=== PATIENT | male | born 1980 | race Caucasian/White ===

== ENCOUNTER 2024-05-15 17:37 | Emergency (ER) | payer OTHER, SELFPAY ==
--- NOTE | ~2024-05-15 | CT_ITS ---
EXAMINATION: CT ABDOMEN AND PELVIS WITHOUT CONTRAST CLINICAL INFORMATION: flank pain, blood in urine. COMPARISON: No pertinent prior studies are available for comparison. TECHNIQUE: Multidetector volumetric imaging was performed from the superior aspect of the liver through the pubic symphysis without contrast per renal stone protocol. Sagittal and coronal reformatted images were obtained on the technologist workstation. This CT examination was performed using dose optimization techniques as appropriate, variously including the following: *Automated exposure control *Adjustment of mA and/or kV according to patient size (this includes techniques or standardized protocols for targeted exams where dose is matched to indication/reason for exam; i.e. extremities or head) *Use of iterative reconstruction technique DLP: 603 mGy-cm. FINDINGS: LUNG BASES: The visualized lung bases are unremarkable. LIVER, GALLBLADDER, BILIARY TREE: The non-contrast liver is normal in size, shape, and attenuation. No focal hepatic lesion or biliary ductal dilatation is present. The gallbladder is contracted but otherwise unremarkable with no evidence of radiopaque gallstones, gallbladder wall thickening, or obvious pericholecystic inflammatory changes. PANCREAS: Unremarkable. SPLEEN: Unremarkable. ADRENAL GLANDS: Unremarkable. KIDNEYS AND URETERS: Mild right-sided hydronephrosis extending up to a 6 mm calculi at the right ureteropelvic junction. I do not appreciate any intrarenal calculi otherwise. Contralateral left kidney is unremarkable. BLADDER: Decompressed but otherwise unremarkable GASTROINTESTINAL TRACT: The small and large bowel are unremarkable. The appendix is unremarkable. ABDOMINAL WALL: No significant hernia is appreciated. LYMPHOVASCULAR STRUCTURES: No lymphadenopathy. The aorta is unremarkable.. PELVIC VISCERA: Unremarkable. OSSEUS STRUCTURES: Unremarkable. CT/CT abdomen pelvis wo IV con IMPRESSION: Mild right-sided hydronephrosis extending up to a 6 mm calculi at the right ureteropelvic junction.
[2024-05-15 17:40] VITALS: BP 123/71; PULSE 56; RESP 18; TEMP 36.4; O2SAT 99; BMI 30.2
--- NOTE | 2024-05-15 17:43 | ED_ITS ---
HPI - General Adult General Chief complaint: General Medical Stated complaint: from UC, needs ultrasound of kidneys Time Seen by Provider: 05/15/24 20:14 Source: patient Mode of arrival: ambulatory Limitations: no limitations History of Present Illness ED Provider: Thelma ALICEA HPI narrative: 43 yo male presenting with bilateral flank pain and dark urine since waking this morning. No hx of similar episodes or kidney stones. Was seen in urgent care earlier today and sent to ED because of blood in urine. Reports mild dysuria and and sharp flank upon waking this morning which has improved throughout the day, no pain currently. Denies urinary retention, incomplete voiding, fevers, chills. Related Data Previous Rx's ?Medication ?Instructions ?Recorded naproxen 500 mg tablet 500 mg PO BID #14 tabs 05/15/24 Allergies Allergy/AdvReac Type Severity Reaction Status Date / Time No Known Allergies Allergy Verified 05/15/24 17:43 Review of Systems 2 Review of Systems: Yes all other systems are reviewed and are negative [facility] Past Medical History Attestation statement: The following information was validated with the patient. Source: old records reviewed and nursing notes reviewed Social History Social History Advance Directives: No Advance Directives Information Provided: No Do you have a plan to hurt others: No Plan Physical Exam ED Vital Signs: Vital Signs - 24 hr 05/15/24 17:40 05/15/24 21:15 05/15/24 21:34 Temperature 97.5 F 97.5 F 97.5 F Pulse Rate 56 54 54 Respiratory Rate 18 18 18 Blood Pressure 123/71 128/71 128/71 Pulse Oximetry 99 100 100 Oxygen Delivery Method Room Air Room Air Room Air BMI result Body Mass Index 30.2 vss Appearance: Alert.? Oriented X3.? No acute distress.? Head: Normocephalic, atraumatic, no step-offs or deformities Eyes: Pupils equal, round and reactive to light.? ENT: Pharynx normal.? Neck: Normal inspection.? Neck supple.? CVS: Normal heart rate and rhythm.? Pulses normal.? Respiratory: No respiratory distress.? Breath sounds normal.? Abdomen: Soft and nontender.? Skin: Skin warm and dry.? Normal skin color.? Normal skin turgor.? Extremities: No lower extremity edema.? No calf ttp. 5/5 strength to bilateral upper and lower extremities Back: No midline tenderness, no C-spine tenderness, full range of motion, no CVA tenderness bilaterally Neuro: Oriented X 3.? No motor deficit.? No sensory deficit. CN 2-12 intact Course Course Course Narrative: RME performed by Mica Dowell PA-C. Patient is a 43 year old assigned male at presenting to the emergency department with blood in his urine and flank pain. Patient states he woke up with flank pain and blood in his urine. Was told to go to the urgent care, did, and was sent here. Detailed physical exam and review of systems are deferred to the forklift mechanic. Labs and imaging ordered. Patient placed back in the waiting room pending room availability and results. Reevaluation(s) Reevaluation #1: CBC unremarkable. Chemistry no acute findings requiring intervention. Normal BUN and creatinine. UA with trace leukocyte esterases no bacteria. No infection. CT abdomen pelvis with mild right-sided hydronephrosis extending up to a 6 mm calculi at the right UPJ, discuss this with urology who states likely symptoms secondary to kidney stone going in and out of the kidney, recommend urology follow-up outpatient. Patient is pain-free at this time and comfortable. Appears to be in no acute distress. Will discharge him with naproxen for pain if needed. I did give him Urology number he will call on Saturday to schedule an appointment. Dr. Rajput recommends discharge home with prompt follow-up. And strict return precautions Educated patient on diagnosis and treatment plan, answered all question, patient verbalizes understanding. At this time patient will be discharged home, advised to return with new or worsening symptoms. Educated on worrisome signs and symptoms and when to return. At this time I feel comfortable discharge home. Time: 21:41 Reevaluation #2: On re-evaluation patient was feeling better. Medications Administered Discontinued Medications Generic Name Dose Route Start Last Admin Trade Name Freq PRN Reason Stop Dose Admin Sodium Chloride 1,000 mls @ 999 mls/hr 05/15/24 20:15 05/15/24 20:43 Ns IV 05/15/24 21:15 999 mls/hr .Q1H1M ERICK Administration Prednisone 20 mg 05/15/24 20:14 05/15/24 20:44 Prednisone 20 Mg Tablet PO 05/15/24 20:15 20 mg ONCE ONE Administration Medical Decision Making Medical Decision Making [facility] Narrative: 43 yo male presenting with bilateral flank pain and dark urine since this morning. Flank pain has improved throughout the day, no pain currently. PE benign, no CVA tenderness or suprapubic tenderness. Hx and PE concerning for nephrolithiasis. Unlikely obstructing uropathy, sepsis, metabolic derangements, infection, UTI. No signs of acute abdomen, cauda equina, epidural abscess. Will rule out kidney injury. Plan - labs, imaging Differential Diagnosis Differential Diagnoses: The differential diagnosis associated with the presentation includes Hx and PE concerning for nephrolithiasis. Unlikely obstructing uropathy, sepsis, metabolic derangements, infection, UTI. No signs of acute abdomen, cauda equina, epidural abscess. Will rule out kidney injury. Admission/Observation Consideration of admission/observation: Escalation of care including admission/observation considered No indication Consult Healthcare Provider Management of the patient was discussed with: Croze Cutter (Dr. Rajput) Lab Data [facility] Lab Attestation statement: I reviewed the patient's lab results. 05/15/24 18:44 05/15/24 18:44 Labs: Lab Results 05/15/24 Range/Units 18:44 WBC 5.7 (4.8-10.8) X10*3/uL RBC 4.52 L (4.60-5.80) X10*6/uL Hgb 14.0 (14.0-18.0) g/dl Hct 41.0 L (42.0-52.0) % MCV 90.7 (80.0-98.0) fL MCH 31.0 (27.0-33.0) pg MCHC 34.1 (31.0-36.0) g/dl RDW 11.9 (11.0-16.0) % Plt Count 304 (160-400) X10*3/uL MPV 9.3 L (9.4-12.4) fL Immature Gran % (Auto) 0.3 (0.0-0.4) % Neut % (Auto) 39.3 L (45-73) % Lymph % (Auto) 50.7 H (20-40) % [place] % (Auto) 8.6 (2-11) % Eos % (Auto) 0.9 (0-4) % Baso % (Auto) 0.2 (0-2) % Lymph # (Auto) 2.9 (1.2-4.9) X10*3/uL [place] # (Auto) 0.5 (0.1-1.2) X10*3/uL Eos # (Auto) 0.1 (0.0-0.4) X10*3/uL Baso # (Auto) 0.0 (0.0-0.2) X10*3/uL Abs Immat Gran (auto) 0.02 (0.00-0.03) X10*3/uL Absolute Neuts (auto) 2.3 (2.0-8.3) x10*3/uL Absolute Nucleated RBC 0.000 (0.0-0.012) X10*3/uL Nucleated RBC % (auto) 0.0 (0.0-0.2) /100WBC Sodium 139 (135-145) mmol/L Potassium 3.8 (3.3-5.1) mmol/L Chloride 104 (96-108) mmol/L Carbon Dioxide 26 (22-29) mmol/L Anion Gap 13 (12-20) BUN 14 (9-16) mg/dL Creatinine 0.97 (0.5-1.4) mg/dL Estim Creat Clear Calc 117.3 Estimated GFR > 60 Random Glucose 98 (60-115) mg/dL Calcium 9.3 (8.4-10.2) mg/dL Magnesium 2.0 (1.6-2.6) mg/dL Total Bilirubin 0.8 (0.0-1.0) mg/dL AST 25 (5-37) U/L ALT 39 (0-40) U/L Alkaline Phosphatase 98 (39-117) U/L Total Protein 7.4 (6.5-8.0) g/dL Albumin 4.6 (3.5-5.0) g/dL Urine Color Yellow Urine Appearance Cloudy Urine pH 5.5 (5.0-9.0) Ur Specific [place] 1.020 (1.005-1.025) Urine Protein 30 (1+) H (Neg-Trace) mg/dL Urine Glucose (UA) Negative (Negative) mg/dL Urine Ketones Negative (Negative) mg/dL Urine Blood Large (3+) H (Negative) Urine Nitrite Negative (Negative) Ur Leukocyte Esterase Trace H (Negative) Urine RBC >20 H (0-2) /HPF Urine WBC 0-5 (0-5) /HPF Ur Squamous Epith Cells 0-2 (0-2) /HPF Urine Bacteria None Seen (None Seen) Hyaline Casts 0-2 (0-2) /LPF Independent Interpretation I performed an independent interpretation of an: CT Scan ( CT/CT abdomen pelvis wo IV con IMPRESSION: Mild right-sided hydronephrosis extending up to a 6 mm calculi at the right ureteropelvic junction. ) Radiology Impression Discussion of test interpretation with radiology: I have reviewed the radiologist's reading. Prescription Management Fluids Critical Care Time Critical Care Time Critical Care Time: Yes Total Critical Care Time: 35 Attestation: I attest to this time spent taking care of the patient, obtaining history, physical, reviewing labs, imaging, speaking to my attending, specialist or hospitalist. Discharge Plan Discharge Clinical Impression: Kidney calculi Patient Disposition: Home, Self-Care Instructions: Kidney Stones (ED) Additional Instructions: Take your medications as prescribed. If you were prescribed antibiotics today, it is important that you take your medication to their entirety, do not skip any doses, do not finish them early. Follow-up with your primary care provider this week. Return to the emergency department with new or worsening symptoms. In case of emergency call 911 Follow up with urology Saturday call to schedule an apt. Drink plenty of fluids Prescriptions: New naproxen 500 mg tablet 500 mg PO BID Qty: 14 0RF Referrals: [facility] [place] Urology Services [Provider Group] - 2 days Physician,Unknown J [Primary Care Provider] - 2 days Stand Alone Forms: Work/School Release Interventions: ED Discharge Assessment Last Done: 05/15/24 21:34 Discharge Date/Time: 05/15/24 21:35 Print Language: Yi
[2024-05-15 18:49] LABS: MANUAL DIFF FLAG NO
[2024-05-15 18:51] LABS: Appearance Urine Cloudy; Color Urine Yellow; Glucose Urine UA Negative (Negative); Leukocyte Esterase Urine Trace (Negative); Nitrite Urine Negative (Negative); PH 5.5 (5.0-9.0); UMIC TRIGGER UACC YES; Urine Blood Large (3+) (Negative); Urine Ketones Negative (Negative); Urine Protein 30 (1+) mg/dL (Neg-Trace)
[2024-05-15 19:05] LABS: Basophils Percent Auto 0.2 % (0-2); Eosinophils Absolute Auto 0.1 X10*3/uL (0.0-0.4); Eosinophils Percent Auto 0.9 % (0-4); Imm Gran Abs Auto 0.02 X10*3/uL (0.00-0.03); Imm Gran Pct Auto 0.3 % (0.0-0.4); Lymphocytes Absolute Auto 2.9 X10*3/uL (1.2-4.9); Lymphocytes Percent Auto 50.7 % (20-40); Mean Corpuscular HGB Conc 34.1 g/dl (31.0-36.0); Mean Corpuscular Volume 90.7 fL (80.0-98.0); Mean Platelet Volume 9.3 fL (9.4-12.4); Monocytes Absolute Auto 0.5 X10*3/uL (0.1-1.2); Monocytes Percent Auto 8.6 % (2-11); Neutrophils Absolute Auto 2.3 x10*3/uL (2.0-8.3); Neutrophils Percent Auto 39.3 % (45-73); Platelet Count 304 X10*3/uL (160-400); Red Blood Count 4.52 X10*6/uL (4.60-5.80); Red Cell Distribution Width 11.9 % (11.0-16.0); White Blood Count 5.7 X10*3/uL (4.8-10.8)
[2024-05-15 19:07] LABS: Alanine Aminotransferase 39 U/L (0-40); Albumin Level 4.6 g/dL (3.5-5.0); Alkaline Phosphatase 98 U/L (39-117); Anion Gap 13 (12-20); Aspartate Amino Transferase 25 U/L (5-37); Bilirubin Total 0.8 mg/dL (0.0-1.0); Blood Urea Nitrogen 14 mg/dL (9-16); Calcium 9.3 mg/dL (8.4-10.2); Carbon Dioxide 26 mmol/L (22-29); Chloride 104 mmol/L (96-108); Creatinine Clr Calc Pharmacy 117.3; Estimated Glomerular Filt Rate > 60; Glucose Random 98 mg/dL (60-115); Potassium 3.8 mmol/L (3.3-5.1); Sodium 139 mmol/L (135-145); Total Protein 7.4 g/dL (6.5-8.0)
[2024-05-15 19:26] LABS: Bacteria Urine None Seen (None Seen); Hyaline Casts Urine 0-2 /LPF (0-2); RBC Urine >20 /HPF (0-2); Squamous Epithelial Cell Urine 0-2 /HPF (0-2); WBC Urine 0-5 /HPF (0-5)
--- NOTE | 2024-05-15 20:22 | ED.GENADULT ---
HPI - General Adult General Chief complaint: General Medical Stated complaint: from UC, needs ultrasound of kidneys Time Seen by Provider: 05/15/24 20:14 Source: patient History of Present Illness ED Provider: Thelma ALICEA HPI narrative: 43 yo male presenting with bilateral flank pain and dark urine since waking this morning. No hx of similar episodes or kidney stones. Was seen in urgent care earlier today and sent to ED because of blood in urine. Reports mild dysuria and and sharp flank upon waking this morning which has improved throughout the day, no pain currently. Denies urinary retention, incomplete voiding, fevers, chills. Related Data Previous Rx's ?Medication ?Instructions ?Recorded naproxen 500 mg tablet 500 mg PO BID #14 tabs 05/15/24 Allergies Allergy/AdvReac Type Severity Reaction Status Date / Time No Known Allergies Allergy Verified 05/20/24 08:52 Physical Exam ED Vital Signs: Vital Signs - 24 hr 05/15/24 17:40 Temperature 97.5 F Pulse Rate 56 Respiratory Rate 18 Blood Pressure 123/71 Pulse Oximetry 99 Oxygen Delivery Method Room Air BMI result Body Mass Index 30.2 vss Appearance: Alert.? Oriented X3.? No acute distress.? Head: Normocephalic, atraumatic, no step-offs or deformities Eyes: Pupils equal, round and reactive to light.? CVS: Normal heart rate and rhythm.? Pulses normal.? Respiratory: No respiratory distress.? Breath sounds normal.? Abdomen: Soft and nontender.? Skin: Skin warm and dry.? Normal skin color.? Normal skin turgor.? Extremities: No lower extremity edema.? No calf ttp. 5/5 strength to bilateral upper and lower extremities Back: No midline tenderness, no C-spine tenderness, full range of motion, no CVA tenderness bilaterally Neuro: Oriented X 3.? No motor deficit.? No sensory deficit. CN 2-12 intact Medications Administered Discontinued Medications Generic Name Dose Route Start Last Admin Trade Name Freq PRN Reason Stop Dose Admin Sodium Chloride 1,000 mls @ 999 mls/hr 05/15/24 20:15 05/15/24 20:43 Ns IV 05/15/24 21:15 999 mls/hr .Q1H1M ERICK Administration Prednisone 20 mg 05/15/24 20:14 05/15/24 20:44 Prednisone 20 Mg Tablet PO 05/15/24 20:15 20 mg ONCE ONE Administration Medical Decision Making Medical Decision Making MDM Narrative: 43 yo male presenting with bilateral flank pain and dark urine since this morning. Flank pain has improved throughout the day, no pain currently. PE benign, no CVA tenderness or suprapubic tenderness. Hx and PE concerning for nephrolithiasis. Unlikely Plan - labs, imaging Lab Data 05/15/24 18:44 05/15/24 18:44 Labs: Lab Results 05/15/24 Range/Units 18:44 WBC 5.7 (4.8-10.8) X10*3/uL RBC 4.52 L (4.60-5.80) X10*6/uL Hgb 14.0 (14.0-18.0) g/dl Hct 41.0 L (42.0-52.0) % MCV 90.7 (80.0-98.0) fL MCH 31.0 (27.0-33.0) pg MCHC 34.1 (31.0-36.0) g/dl RDW 11.9 (11.0-16.0) % Plt Count 304 (160-400) X10*3/uL MPV 9.3 L (9.4-12.4) fL Immature Gran % (Auto) 0.3 (0.0-0.4) % Neut % (Auto) 39.3 L (45-73) % Lymph % (Auto) 50.7 H (20-40) % [place] % (Auto) 8.6 (2-11) % Eos % (Auto) 0.9 (0-4) % Baso % (Auto) 0.2 (0-2) % Lymph # (Auto) 2.9 (1.2-4.9) X10*3/uL [place] # (Auto) 0.5 (0.1-1.2) X10*3/uL Eos # (Auto) 0.1 (0.0-0.4) X10*3/uL Baso # (Auto) 0.0 (0.0-0.2) X10*3/uL Abs Immat Gran (auto) 0.02 (0.00-0.03) X10*3/uL Absolute Neuts (auto) 2.3 (2.0-8.3) x10*3/uL Absolute Nucleated RBC 0.000 (0.0-0.012) X10*3/uL Nucleated RBC % (auto) 0.0 (0.0-0.2) /100WBC Sodium 139 (135-145) mmol/L Potassium 3.8 (3.3-5.1) mmol/L Chloride 104 (96-108) mmol/L Carbon Dioxide 26 (22-29) mmol/L Anion Gap 13 (12-20) BUN 14 (9-16) mg/dL Creatinine 0.97 (0.5-1.4) mg/dL Estim Creat Clear Calc 117.3 Estimated GFR > 60 Random Glucose 98 (60-115) mg/dL Calcium 9.3 (8.4-10.2) mg/dL Magnesium 2.0 (1.6-2.6) mg/dL Total Bilirubin 0.8 (0.0-1.0) mg/dL AST 25 (5-37) U/L ALT 39 (0-40) U/L Alkaline Phosphatase 98 (39-117) U/L Total Protein 7.4 (6.5-8.0) g/dL Albumin 4.6 (3.5-5.0) g/dL Urine Color Yellow Urine Appearance Cloudy Urine pH 5.5 (5.0-9.0) Ur Specific [place] 1.020 (1.005-1.025) Urine Protein 30 (1+) H (Neg-Trace) mg/dL Urine Glucose (UA) Negative (Negative) mg/dL Urine Ketones Negative (Negative) mg/dL Urine Blood Large (3+) H (Negative) Urine Nitrite Negative (Negative) Ur Leukocyte Esterase Trace H (Negative) Urine RBC >20 H (0-2) /HPF Urine WBC 0-5 (0-5) /HPF Ur Squamous Epith Cells 0-2 (0-2) /HPF Urine Bacteria None Seen (None Seen) Hyaline Casts 0-2 (0-2) /LPF Discharge Plan Discharge Clinical Impression: Kidney calculi Patient Disposition: Home, Self-Care Instructions: Kidney Stones (ED) Additional Instructions: Take your medications as prescribed. If you were prescribed antibiotics today, it is important that you take your medication to their entirety, do not skip any doses, do not finish them early. Follow-up with your primary care provider this week. Return to the emergency department with new or worsening symptoms. In case of emergency call 911 Follow up with urology Saturday call to schedule an apt. Drink plenty of fluids Prescriptions: New naproxen 500 mg tablet 500 mg PO BID Qty: 14 0RF Referrals: [facility] [place] Urology Services [Provider Group] - 2 days Physician,Stephany J [Primary Care Provider] - 2 days Stand Alone Forms: Work/School Release Interventions: ED Discharge Assessment Last Done: 05/15/24 21:34 Discharge Date/Time: 05/15/24 21:35 Print Language: [place]
[2024-05-15] MEDS: 0.9 % Sodium Chloride 1,000 ML 999 ML IV (20:43)
[2024-05-15] MEDS: predniSONE 20 MG TABLET PO (20:44)
--- NOTE | 2024-05-15 20:49 | PC.NURSE ---
pt refusing pain medication at this time. manageable without intervention per pt
[2024-05-15 21:15] VITALS: BP 128/71; PULSE 54; RESP 18; TEMP 36.4; O2SAT 100
[2024-05-15 21:34] VITALS: BP 128/71; PULSE 54; RESP 18; TEMP 36.4; O2SAT 100
== END 2024-05-15 21:35 | disposition home or self-care (01) ==
PROVIDERS: Physician Assistant Medical; Emergency Provider Emergency Medicine
DX: N20.0 Calculus of kidney (principal); R10.2 Pelvic and perineal pain; Z79.899 Other long term (current) drug therapy
CPT/HCPCS: 36415; 74176; 80053; 81001; 81003; 83735; 85025; 99284

== ENCOUNTER 2024-05-20 08:51 | Outpatient (AMB) | payer OTHER, SELFPAY ==
--- NOTE | 2024-05-20 08:52 | A.OFFVIS_ITS ---
Intake Visit Reasons: kidney stone- book this week per Dr. Liz lee SX Intake Note: New patient is present for ER Follow up on 05/15/24 for Kidney stone No history of kidney stones Hog Scraper Required: No Allergies No Known Allergies Allergy (Verified 05/20/24 08:52) HPI Comments Details: Zachary is a pleasant male. He has seen for the following urologic conditions - nephrolithiasis Telemedicine Evaluation 15 min Consultation [employer] Video Nephrolithiasis Recently seen at emergency room Presentation with dark urine Found to have 6 mm renal stone right side Discussed options Given relative asymptomatic status would recommend ESWL Review of Systems Const All systems reviewed & are unremarkable except as noted in HPI and below Reports no additional complaints Resp Reports no additional complaints GI Reports no additional complaints Reports as per HPI Musc Reports no additional complaints Physical Exam Telemedicine evaluation Appropriate responses Regular breathing rate and rhythm HEENT Head: Yes normal to inspection Ears: hearing grossly normal bilaterally Eyes General: appearance normal, both eyes and all related structures Neck Neck: Yes normal visual inspection Chest Chest palpation & inspection: normal inspection of the chest Resp Effort & Inspection: normal respiratory effort and able to speak in complete sentences Telehealth Telehealth Telehealth Platform: [employer] [place] Location of provider rendering services: practice address Location of patient: address on file Patient Identification confirmed using: Name, : Yes Telehealth method: video Patient verbally consented to treatment: Yes Patient verbally consented to billing insurance company: Yes Patient informed of any privacy concerns related to visit: Yes Minutes spent on Phone/Video with Pt.: 15 Assessment & Plan Assessment & Plan (1) Kidney calculi: Code(s): N20.0 - Calculus of kidney Category: Medical Plan Extracorporeal Shock Wave Lithotripsy We discussed the nature of the decision and reasonable alternatives for performing the above surgery. Interventions include chemical dissolution, ESWL, ureteroscopy with laser lithotripsy and stent placement, PCNL. Options such as medical therapy were discussed. The relative uncertainties and benefits related to each alternate procedure were adequately discussed. General surgical risks including, but not limited to, pain, bleeding, infection, myocardial infarction, pulmonary embolus, deep vein thrombosis and cerebrovascular accident which may result in further hospitalization were discussed. Full disclosure of the procedure as well as all major risks, benefits and complications were discussed including but not limited to risks of bleeding, injury to the kidney with hematoma or etta-hematoma, failure to fragments stone, potential for ureteric obstruction from stone passage and need for secondary procedures. There is a small long-term risk of hypertension and a question kenn of diabetes. Success rate of fragmentation and passage is approximately 70- 75%. This is compared to the risks and benefits for ureteroscopy which has a higher success rate but is a more invasive procedure. The success rate of the procedure was discussed. Success of the procedure in the short-term does not necessarily guarantee that long-term success will be maintained. Suitable follow up will need to be maintained. The patient showed understanding of the discussion as well as the typical recovery time, and the outpatient nature of this procedure. Opportunity was given for questions. Repeat-back protocol used to confirm understanding. They wish to proceed with right ESWL Patient Instructions: Imaging studies, laboratory and physical exam results were discussed and reviewed in detail. No major barriers to patient understanding were identified. An opportunity to ask questions regarding the treatment plan was provided. All questions were answered. The patient expressed understanding and agreement with the above treatment plan. The patient is aware they should contact our office by phone for worsening of their current condition or the appearance of new urologic symptoms. Compliance is encouraged with any medications and followup testing that is ordered. It is a privilege to participate in the urologic care of your patient. If you have any questions or concerns regarding treatment for the above conditions, or other urologic issues, please do not hesitate to contact me. The office telephone contact is [phone]. This note is constructed using voice recognition software. While every effort has been made to ensure accuracy education and training coordinator errors may have been included. Yours sincerely, Dr Fabrizio Rajput MD, PHIL [facility] - Urology Providers of Expert, Compassionate Care for the Genitourinary System Coding Level of Care Code Tele New Pt Level 4 (91331) Diagnoses Kidney calculi N20.0
== END 2024-05-20 09:22 | disposition home or self-care (01) ==
LOC: HO.HUSH 08:51
PROVIDERS: Visit Provider Urology
DX: N20.0 Calculus of kidney (principal)
CPT/HCPCS: 99204

== ENCOUNTER → 2024-05-20 08:51 | Outpatient (BNVA) | payer OTHER, SELFPAY | PROVIDERS: Visit Provider Urology ==

== ENCOUNTER 2024-06-03 09:32 | Day surgery (SDC) | payer OTHER, SELFPAY ==
[2024-06-01 14:45] VITALS: BMI 29.8
--- NOTE | 2024-06-02 09:36 | P.CONAN_ITS ---
Documented by User: Tegan Carlson NP 06/02/24 09:37 HPI - Anesthesia Eval Consult details Narrative: 43yo M for Lithotripsy ESW PMFSH Past Medical History Medical History Renal calculi Mild heartburn Surgical History Surgical History History of back surgery Social History Social History Household Members: Family Housing: House Are you a primary childcare center director to a significant other at home: No Do you presently have visiting nurse or other home services: No Patient Tobacco Use Status: Never used Tobacco Use of substances other than those prescribed or required for medical reasons: No Have you been hit, kicked, punched, or otherwise hurt by someone within the past year? If so, by whom?: No Are you DNR?: No Advance Directives: No Advance Directives Information Provided: Yes (declined at this time) Advance Directives on File: No Poor oral hygiene: No Meds Allergies Allergy/AdvReac Type Severity Reaction Status Date / Time No Known Allergies Allergy Verified 06/03/24 10:24 Home Medications ?Medication ?Instructions ?Recorded ?Confirmed ?Last Taken ?Type omeprazole 20 mg tablet,delayed 20 mg PO DAILY PRN Gastric Reflux 06/01/24 06/01/24 Unknown History release Exam Height,Weight and Vital Signs: Height 5 ft 11 in Weight 97.069 kg Pertinent Lab Results Pertinent Lab Results: Laboratory Tests 05/15/24 18:44 WBC 5.7 Hgb 14.0 Hct 41.0 L Plt Count 304 Sodium 139 Potassium 3.8 Chloride 104 Carbon Dioxide 26 BUN 14 Creatinine 0.97 Assessment and Plan Assessment Anesthesia Assessment: Chart Reviewed Documented by User: Rosaline Funez MD 06/03/24 12:51 HPI - Anesthesia Eval Consult details Narrative: 43yo M for Right Lithotripsy ESW PMFSH Active Problems Active Problems: GERD. Meds prn Past Medical History Medical History Renal calculi Mild heartburn Family History Family history of problems with anesthesia: No Surgical History Surgical History History of back surgery History of Problems with Anesthesia: No Social History Social History Household Members: Family Housing: House Are you a primary childcare center director to a significant other at home: No Do you presently have visiting nurse or other home services: No Patient Tobacco Use Status: Never used Tobacco Use of substances other than those prescribed or required for medical reasons: No Have you been hit, kicked, punched, or otherwise hurt by someone within the past year? If so, by whom?: No Are you DNR?: No Advance Directives: No Advance Directives Information Provided: Yes (declined at this time) Advance Directives on File: No Poor oral hygiene: No Meds Allergies Allergy/AdvReac Type Severity Reaction Status Date / Time No Known Allergies Allergy Verified 06/03/24 10:24 Home Medications ?Medication ?Instructions ?Recorded ?Confirmed ?Last Taken ?Type omeprazole 20 mg tablet,delayed 20 mg PO DAILY PRN Gastric Reflux 06/01/24 06/01/24 Unknown History release Exam Height,Weight and Vital Signs: Height 5 ft 11 in Weight 97.069 kg Vital Signs Temp Pulse Resp BP Pulse Ox O2 Del Method 06/03/24 10:29 97.8 F 53 15 133/69 96 Room Air Airway Mallampati Class: II TM Dist: >3cm Neck ROM: Full Loose/Missing/Broken Teeth: Yes (Missing tooth Right and left bottom) Heart: RRR+?murmur Lungs: CTAB Assessment and Plan Assessment Anesthesia Assessment: Anesthesia Plan Discussed and Chart Reviewed Final Anesthetic Review Family History of Problems with Anesthesia: No History of Problems with Anesthesia: No NPO: Yes ASA Class: II Final Preanesthetic Review: No Changes in Pt Med Stat, Meds/Allgs Chart Reviewed, Consent Obtained/Reviewed and Anes Risks/Benef Reviewed Patient Risk: Low Procedure Risk: Low Assessment/Block/Sedation in SS: Assess/Block/Sedation-SS Anesthetic Plan Anesthetic Plan: GA and TIVA Disposition: Standard PACU
[2024-06-03] VITALS (7 sets, daily range): BP systolic 120–133; BP diastolic 69–77; PULSE 47–55; RESP 14–18; TEMP 36.6; O2SAT 96–100; BMI 29.1
--- NOTE | ~2024-06-03 | XR_ITS ---
EXAMINATION: XR ABDOMEN KUB CLINICAL INDICATION: Evaluate for renal stones. COMPARISON: CT abdomen/pelvis 05/15/2024 TECHNIQUE: 3 views of the abdomen. FINDINGS: Imaged lung bases are clear. Nonobstructive bowel gas pattern. The renal shadows are obscured by overlying bowel contents. Possible 6 mm calculus projecting over the midpole of the right renal shadow. XR/XR KUB IMPRESSION: Limited study. Possible 6 mm calculus projecting over the mid pole of the right renal shadow.
[2024-06-03] MEDS: Lactated Ringers 1,000 ML 999 ML IV (10:47)
[2024-06-03] MEDS: Acetaminophen 1,000 MG/100 ML PIGGYBACK 400 MG IV (10:48)
--- NOTE | 2024-06-03 12:30 | MHC.SHP ---
Pre-Procedural Eval Section A - 24 Hr Update-Section A only Date of Service: 06/03/24 The patient is an INPATIENT: No Changes since office visit: No Cold of Flu in the past 2 weeks, No New Medical Problems, No Changes in Medication and No Patient answered all questions The patient has been examined within 24 hours of the surgical procedure. The History & Physical has been completed within 30 days and I have reviewed it.: Yes Section B - Complete if H&P > 30 days Chief Complaint: Calculus of kidney Details of Present Illness: right renal mid pole Allergies: Allergies Allergy/AdvReac Type Severity Reaction Status Date / Time No Known Allergies Allergy Verified 06/03/24 10:24 Review of Systems Sugical H&P ROS: Negative: Constitution, Cardiovascular, Respiratory, Neurological, Psychiatric, Hem-Onc, Allergic/Immunologic, Gastrointestinal, Genitourinary, Musculoskeletal, Integumentary, Endocrine and Eyes/Ears/Nose/Throat Exam Surgical H&P Exam: Normal: HEENT, Normal: Heart, Normal: Lungs, Normal: Extremities, Normal: Abdomen, Normal: Skin and Normal: Neurological Plan Diagnosis/Plan: Unchanged (5mm mid right pole) I have reviewed the history and physical and performed a pertinent physical examination on my patient. No changes have occurred unless specified. Time Spent With Patient Time: Total time managing care of this patient today ____ minutes.
--- NOTE | 2024-06-03 13:14 | W.PM.OPN ---
Operative Note Operative Note Date of Service: 06/03/24 Narrative: PreOperative Diagnosis: right Renal stones Post Operative Diagnosis: right Renal stones Procedure: right ESWL Surgeon: Dr Fabrizio Rajput Anesthesia: mac/sedation Indications for procedure: The patient understands ESWL may be a staged procedure and subsequent intervention may be required based on imaging after ESWL. Quoted stone clearance rates for a solitary procedure are in the 70-80% range based primarily on stone location. They also understand there is a risk of bleeding to the kidney, infection, damage to adjacent organs, and stone migration following the procedure. - Imaging 7mm right UPJ Procedure optimization has been performed with IV acetaminophen given in the holding area and 1 L of lactated Ringer's to be given in order to optimize the fluid-stone interface. 20 mg of IV Lasix will be given in the last 5 minutes of the procedure to optimize stone clearance. Procedure: After informed consent was verified the patient was brought to the operating room and placed in a supine position. Anesthesia was performed per protocol. Safety pause time-out was performed. Imaging was displayed in the room and laterality confirmed. ESWL was performed. The 1st 500 shocks were performed at 60 hertz. These were performed with increasing power. Once maximum power was reached the rate was increased to 180 hertz. A total of 2500 shocks were given. Targeted imaging with ultrasound/fluoroscopy showed stone smudging suggestive of disintegration. The patient tolerated the procedure well and was transferred to the recovery area upon completion. Post procedure imaging will be organized. There was no evidence for flank discoloration.
== END 2024-06-03 14:58 | disposition home or self-care (01) ==
PROVIDERS: Visit Provider Urology
PROC: (CPT 50590; principal; 2024-06-03 11:30)
DX: N20.0 Calculus of kidney (principal); K21.9 Gastro-esophageal reflux disease without esophagitis; Z79.899 Other long term (current) drug therapy; Z98.890 Other specified postprocedural states
CPT/HCPCS: 50590; 74018; J0131; J1885; J1940; J2704; J3010

== ENCOUNTER → 2024-06-03 09:32 | Outpatient (BNV) | payer OTHER, SELFPAY | PROVIDERS: Visit Provider Urology | DX: N20.0 Calculus of kidney (principal) | CPT/HCPCS: 50590 ==

== ENCOUNTER 2024-06-23 14:58 | Outpatient (REF) | payer OTHER, SELFPAY ==
--- NOTE | ~2024-06-23 | US_ITS ---
EXAMINATION: US RETROPERITONEAL LIMITED (RENAL ONLY) CLINICAL INFORMATION: Calculus of kidney. Patient states passed stone seen on KUB and CT. COMPARISON: X-ray KUB 06/03/2024. CT abdomen and pelvis 05/15/2024. Patient states passing stone seen on KUB and CT. TECHNIQUE: Real-time imaging of the kidneys. Limited visualization due to bowel gas. FINDINGS: RIGHT KIDNEY: 11.5 x 5.0 x 6.1 cm (SAG x AP x TRV). No hydronephrosis. No renal calculi. Renal cortical thickness is normal. Limited visualization. LEFT KIDNEY: 12.6 x 6.2 x 5.4 cm (SAG x AP x TRV). No hydronephrosis. No renal calculi. Renal cortical thickness is normal. Limited visualization. US/US renal BI IMPRESSION: No hydronephrosis. No renal calculi.
== END 2024-06-23 14:59 | disposition home or self-care (01) ==
LOC: HO.US 14:58
PROVIDERS: Visit Provider Urology
DX: N20.0 Calculus of kidney (principal)
CPT/HCPCS: 76775

== ENCOUNTER 2024-07-21 14:59 | Outpatient (AMB) | payer OTHER, SELFPAY ==
--- NOTE | 2024-07-21 15:41 | MHC.OFFVIS ---
Intake Visit Reasons: ESWL- follow up/US Intake Note: Patient is present for Post oP Offset Plate Maker Required: No Accompanied by: Self / Same As Patient Allergies No Known Allergies Allergy (Verified 06/03/24 10:24) Medication List - Last Reconciled 07/21/24 by Fabrizio Rajput MD naproxen 500 mg PO BID naproxen 500 mg PO BID PRN 7 days omeprazole 20 mg PO DAILY PRN oxycodone 5 mg PO Q8H PRN 3 days tamsulosin 0.4 mg PO BEDTIME 14 days HPI Comments Details: Zachary is a pleasant male. He has seen for the following urologic conditions - nephrolithiasis Right ESWL follow-up Encourage fluid intake 12 month follow-up imaging Nephrolithiasis Recently seen at emergency room Presentation with dark urine Found to have 6 mm renal stone right side Intervention - 05/11 right ESWL Imaging - 07/11 renal ultrasound no stones PFSH Medical History Renal calculi Mild heartburn Surgical History History of back surgery Social History Household Members: Family Housing: House Are you a primary career technology teacher to a significant other at home: No Do you presently have visiting nurse or other home services: No 75 years or older and lives alone: No Patient Tobacco Use Status: Never used Tobacco Review of Systems Const Denies chills and Denies fever(s) Card Reports no additional complaints and Denies syncope Resp Denies cough GI Denies abdominal pain and Denies heartburn Reports as per HPI and Denies change in libido Neuro Denies syncope Psych Denies change in libido Endo Denies change in libido Physical Exam Const General: cooperative, healthy appearing, comfortable and no acute distress Orientation/consciousness: patient oriented x3 HEENT Face and sinus: Yes normal facial exam Mouth: moist mucous membranes Neck Neck: Yes normal visual inspection, Yes full ROM and Yes trachea midline Chest Chest palpation & inspection: normal inspection of the chest Resp Effort & Inspection: normal respiratory effort, able to speak in complete sentences and no respiratory distress GI Inspection: Yes normal to inspection Back/Spine/Pelvis Cervical Spine: normal cervical lordosis Thoracic/Lumbar Spine: thoracic and lumbar spine normal to inspection Skin General skin exam: no rashes or lesions noted Neuro General: patient oriented x3, gait normal, tone normal and moves all extremities Extrem General: Yes normal to inspection and Yes capillary refill normal Assessment & Plan Assessment & Plan (1) Kidney calculi: Code(s): N20.0 - Calculus of kidney Category: Medical Plan Encourage fluid intake 12 month follow-up imaging Orders: Orders US renal BI 12 Months N20.0 - Calculus of kidney Patient Instructions: Imaging studies, laboratory and physical exam results were discussed and reviewed in detail. No major barriers to patient understanding were identified. An opportunity to ask questions regarding the treatment plan was provided. All questions were answered. The patient expressed understanding and agreement with the above treatment plan. The patient is aware they should contact our office by phone for worsening of their current condition or the appearance of new urologic symptoms. Compliance is encouraged with any medications and followup testing that is ordered. It is a privilege to participate in the urologic care of your patient. If you have any questions or concerns regarding treatment for the above conditions, or other urologic issues, please do not hesitate to contact me. The office telephone contact is [phone]. This note is constructed using voice recognition software. While every effort has been made to ensure accuracy right of way appraiser errors may have been included. Yours sincerely, Dr Fabrizio Rajput MD, [facility] - Urology Providers of Expert, Compassionate Care for the Genitourinary System Coding Level of Care Code Est Pt Level 3 (03134) Diagnoses Kidney calculi N20.0
== END 2024-07-21 15:52 | disposition home or self-care (01) ==
PROVIDERS: Visit Provider Urology
DX: N20.0 Calculus of kidney (principal)
CPT/HCPCS: 99024

== ENCOUNTER → 2024-07-21 14:59 | Outpatient (BNVA) | payer OTHER, SELFPAY | PROVIDERS: Visit Provider Urology | DX: Z87.442 Personal history of urinary calculi (principal) | CPT/HCPCS: 99212 ==

== ENCOUNTER 2024-09-29 15:15 | Outpatient (REF) | payer OTHER, SELFPAY ==
--- NOTE | ~2024-09-29 | XR_ITS ---
EXAMINATION: XR ABDOMEN KUB CLINICAL INDICATION: Renal calculi COMPARISON: June 03, 2024 TECHNIQUE: AP view of the abdomen. FINDINGS: The bowel gas pattern is normal with no evidence of ileus or obstruction. No unusual soft tissue calcifications are noted. The bones are unremarkable. XR/XR KUB IMPRESSION: Unremarkable examination. No evidence of renal calculi Electronically signed by: Jamel Holland MD 09/30/2024 08:37 AM EST
== END 2024-09-29 15:16 | disposition home or self-care (01) ==
LOC: HO.XRAY 15:15
PROVIDERS: Visit Provider Urology
DX: N20.0 Calculus of kidney (principal)
CPT/HCPCS: 74018

== ENCOUNTER 2025-07-12 15:02 | Outpatient (REF) | payer OTHER, SELFPAY ==
--- NOTE | ~2025-07-12 | US_ITS ---
EXAMINATION: US KIDNEY BILATERAL HISTORY: N20.0 - Calculus of kidney TECHNIQUE: Real-time grayscale ultrasound imaging of the kidneys was performed and images were reviewed. COMPARISON: Comparison is made with the prior examination dated 06/23/2024. FINDINGS: Right kidney: The right kidney measures 10.9 x 4.9 x 5.7 cm. Renal parenchymal echotexture and thickness are normal. There are no masses. There is no hydronephrosis or renal calculi. Left Kidney: The left kidney measures 12.5 x 5.9 x 5.9 cm. Renal parenchymal echotexture and thickness are normal. There are no masses. There is no hydronephrosis or renal calculi. US/US renal BI IMPRESSION: Unremarkable renal ultrasound. Electronically signed by: Jared Mcnamara MD 07/12/2025 03:37 PM EDT
--- OUTSIDE RECORDS SUMMARY | 2025-07-12 16:42 | XMS_ITS | Clinical Summary ---
Author Organization [facility] [address] [place] [address] [place] [phone] Phone Care Team Providers Care Kettle Cleaner Name Role Phone Casimiro Bravo MD Primary Care Provider Allergies No known active allergies Medications doxycycline hyclate (VIBRA-TABS) 100 mg tablet Take 1 tablet twice a day by oral route for 14 days. 06/11/2025 Active Active Problems Problem Noted Date Diagnosed Date Pure hypercholesterolemia 02/26/2025 Former smoker 02/24/2025 Kidney stones 02/24/2025 Obesity (BMI 30-39.9) 02/24/2025 Alcohol use 02/24/2025 Encounters Date Type Department Care Team Description 06/23/2025 1:30 PM EDT Office Visit Orthopedic Surgery [facility] [address] [facility] [address] [place] [phone] Chuck Silvestre MD Adhesive capsulitis of right shoulder (Primary Dx) 05/03/2025 1:30 PM EDT Office Visit Orthopedic [facility] [address] [facility] [address] [place] [phone] Chuck Silvestre MD Adhesive capsulitis of right shoulder (Primary Dx) from Last 3 Months Surgical History Surgery Date Site/Laterality Comments BACK SURGERY 11/18/2018 - 11/17/2019 L5-L5 discectomy LITHOTRIPSY 11/18/2023 - 11/17/2024 Medical History Medical History Date Comments Kidney stone Family History Medical History Relation Name Comments No Known Problems Brother No Known Problems Father Heart failure Maternal Grandfather No Known Problems Maternal Grandmother Hypertension Mother No Known Problems Paternal Grandfather h eart problem Food poisoning Paternal Grandmother No Known Problems Son x2 Relation Name Status Comments Brother Alive Father Alive Maternal Grandfather Maternal Grandmother Alive Mother Alive Paternal Grandfather Paternal Grandmother Son Alive Social History Tobacco Use Types Packs/Day Years Used Date Smoking Tobacco: Former Cigarettes Passive Smoke Exposure: Never Smokeless Tobacco: Never Tobacco Cessation:Counseling Given: Not Answered Alcohol Use Standard Drinks/Week Comments Yes 0 (1 standard drink = 0.6 oz pur e alcohol) once a week, 6 beers Housing Instability Answer Date Recorde d Are you worried that in the next 2 months you may not have stable housing? No 02/22/2025 Access to Healthcare Answer Date Record ed Within the last 3 months, ho w many times did you visit the emergency department for your medical care? 0 02/22/2025 Health Literacy Answer Date Recorded How often do you need to hav e someone help you when you read instructions, pamphlets, or other written material from your doctor or pharmacy? Never 02/22/2025 Caregiver: How often do you need to have someone help you when you read instructions, pamphlets, or other written material from your doctor or pharmacy? Not on file 02/22/2025 Financial Risk Answer Date Recorded How hard is it for you to pa y for the very basics like food, housing, medical care, and air conditioning / heating? Not very hard 02/22/2025 Transportation Answer Date Recorded Has the lack of transportati on kept you from meetings, work, or from getting things needed for daily living? No Has the lack of transportati on kept you from medical appointments or from getting medications? No 02/22/2025 Social Isolation Answer Date Recorded How often do you feel lonely or isolated from th ose around you? Never 02/22/2025 Food Risk Answer Date Recorded Within the past 12 months we worried whether our food would run out before we got money to buy more. Never true 02/22/2025 Within the past 12 months th e food we bought just didn't last and we didn't have money to get more. Never true 02/22/2025 Dependent Care Answer Date Recorded Do you need help finding or paying for care for your loved ones. For example, child care development specialist or elderly care for an older adult? No 02/22/2025 Education Answer Date Recorded Do you think completing more education or training, like finishing a GED, going to college, or learning a trade, would be helpful for you? N/A 02/22/2025 Employment and Income Answer Date Recor ded During the last four weeks, have you been actively looking for work? No 02/22/2025 Living Situation Answer Date Recorded What is your living situation? 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 Not on file Not on file Not on file Obstetrics History Last Filed Vital Signs Vital Sign Reading Time Taken Comments Blood Pressure 130/60 02/24/2025 9:03 AM EDT Pulse 58 02/24/2025 9:28 AM EDT Temperature 36.3 C (97.3 F) 02/24/2025 9:03 AM EDT Respiratory Rate 16 02/24/2025 9:03 AM EDT Oxygen Saturation 99% 02/24/2025 9:03 AM EDT Inhaled Oxygen Concentration - - Weight 97.5 kg (215 lb) 06/23/2025 1:25 PM EDT Height 180.3 cm (5' 11 ) 06/23/2025 1:25 PM EDT Body Mass Index 29.99 06/23/2025 1:25 PM EDT Plan of Treatment Upcoming Encounters Date Type Department Care Team (Late st Contact Info) Description 12/23/2025 1:30 PM EST Office Visit Orthopedic Surgery - [place] [address] [facility] [address] [place] [phone] Chuck Silvestre MD [address] [place] [phone] Health Maintenance Due Date Last Done Comments DTaP,Tdap,and Td Vaccines (1 - Tdap) 1999 Hepatitis B Vaccines (1 of 3 - 19+ 3-dose series) 1999 Influenza Vaccine (#1) 2025 Social Influencers of Health Screening 02/22/2026 02/22/2025 Cholesterol Screening (Lipid Panel) 02/25/2030 02/25/2025 Depression Screening Completed 02/22/2025 HIV Screening Completed 02/25/2025 Hepatitis C Screening Completed 02/25/2025 COVID-19 Vaccine Discontinued HIB Vaccines Aged Out No longer eligi ble based on patient's age to complete this topic HPV Vaccines Aged Out No longer eligi ble based on patient's age to complete this topic Hepatitis A Vaccines Aged Out No long er eligible based on patient's age to complete this topic IPV Vaccines Aged Out No longer eligi ble based on patient's age to complete this topic MMR Vaccines Aged Out No longer eligi ble based on patient's age to complete this topic Meningococcal ACWY Vaccine Aged Out N o longer eligible based on patient's age to complete this topic Meningococcal B Vaccine Aged Out No l onger eligible based on patient's age to complete this topic Pneumococcal Vaccine: Pediat rics (0 to 5 Years) and At-Risk Patients (6 to 49 Years) Aged Out No longer eligi ble based on patient's age to complete this topic RSV Immunization Patients Un oz 20 months Aged Out No longer eligible b ased on patient's age to complete this topic Varicella Vaccines Aged Out No longer eligible based on patient's age to complete this topic Procedures Procedure Name Priority Date/Time Associated Diagnosis Comments HEPATITIS C ANTIBODY Routine 02/25/2025 9:34 AM EDT Need for hepatitis C screening test HIV 1, 2 ANTIBODY, P24 ANTIGEN WITH REFLEX TO DIFFERENTIATION Routine 02/25/2025 9:34 AM EDT Screening for HIV (human immunodeficiency virus) LIPID PANEL WITH REFLEX TO DIRECT LDL Routine 02/25/2025 9:34 AM EDT Encounter for screening for lipid disorder from Last 3 Months or Most Recently Relevant to Health Maintenance Results * Hepatitis C antibody (02/25/2025 9:34 AM EDT) Hepatitis C Antibody Negative Negative LAB CHEMISTRY METHOD 02/25/2025 5:39 PM EDT [facility] Blood Venous blood specimen / Unknown Venipuncture / Unknown 02/25/2025 9:34 AM EDT 02/25/2025 9:34 AM EDT us Subha Keane PA LAB BLOOD ORDERABLES Final Resul t Performing Organization Address City/[facility]/ZIP Co de Phone Number [facility] [address] [place] [address], [place] [phone] * HIV 1,2 antibody, p24 antigen with reflex to differentiation (02/25/2025 9:34 AM EDT) Pathologist [facility] HIV Combo AB/AG Negative Negative LAB CHEMISTRY METHOD 02/25/2025 5:40 PM EDT [facility] Blood Venous blood specimen / Unknown Venipuncture / Unknown 02/25/2025 9:34 AM EDT 02/25/2025 9:34 AM EDT Narrative [facility] - 02/25/2025 5:40 PM EDT This assay is a 4th generation assay allowing for earlier detection of HIV infection by detecting the presence of the HIV-1 p24 antigen as well as the traditional antibodies to HIV type 1 (including group O) and type 2. Use of a 4th generation assay is the current CDC recommendation for HIV screening. us Subha WYLIE LAB BLOOD ORDERABLES Final Resul t Performing Organization Address [facility] de Phone Number [facility] [address] [place] [address], [place] [phone] * (ABNORMAL) Lipid panel with reflex to direct LDL (02/25/2025 9:34 AM EDT) Cholesterol 220(H) 0 - 200 mg/dL LAB CHEMISTRY METHOD 02/25/2025 1:05 PM EDT [facility] Triglycerides 63 0 - 150 mg/dL LAB CHEMISTRY METHOD 02/25/2025 1:05 PM EDT [facility] HDL 58 >=40 mg/dL LAB CHEMISTRY METHOD 02/25/2025 1:05 PM EDT [facility] LDL Calculated 149(H) 0 - 100 mg/dL LAB CHEMISTRY METHOD 02/25/2025 1:05 PM EDT [facility] VLDL Cholesterol [place] 12.6 mg/dL LAB CHEMISTRY METHOD 02/25/2025 1:05 PM EDT [facility] Non HDL Chol. (LDL+VLDL) 162(H) <145 mg/dL LAB CHEMISTRY METHOD 02/25/2025 1:05 PM EDT [facility] Chol/HDL Ratio 3.8 0.0 - 4.4 LAB CHEMISTRY METHOD 02/25/2025 1:05 PM EDT [facility] Blood Venous blood specimen / Unknown Venipuncture / Unknown 02/25/2025 9:34 AM EDT 02/25/2025 9:34 AM EDT us Subha Lakhwinder WYLIE LAB BLOOD ORDERABLES Final Resul t [facility] [address] [place] [address], from Last 3 Months or Most Recently Relevant to Health Maintenance Insurance [facility] [employer] Care Teams Kettle Cleaner Relationship Specialty Start Date End Date Casimiro Bravo MD [address] [place] [address] [facility] - General 05/15/24
--- OUTSIDE RECORDS SUMMARY | 2025-07-12 16:43 | XMS_ITS | Patient Health Record ---
[facility] Address [address] [place] [address] Care Team Providers Care Trapper Bird Name Role Phone JEFF GAMBOA Unavailable [phone] Allergies No Known Allergies Reason For Referral No Information Social History Tobacco Use: Social History Observation Description Date Details (start date - stop date) Never Smoker NA - NA Tobacco Use/Smoking Question Answer Notes Are you a nonsmoker Alcohol Screen (Audit-C) Question Answer Notes Did you have a drink contain ing alcohol in the past year? Yes How often did you have a dri nk containing alcohol in the past year? 4 or more times a week (4 points) Points 4 Interpretation Positive Problems Problem Type SNOMED Code ICD Code Onset Dates Problem Status W/U Status Risk Notes Problem Obesity (311493006) Obesity, uns pecified (E66.9) Active confirmed Problem Hyperlipidemia (55409882) Hyperlipidemia, unspecified (E78.5) Active confirmed Problem Pure hypercholesterolemia (019741729) Pure hypercholesterolemia (E78.00) Active confirmed Problem Vitamin D deficiency (42931255) Vitamin D deficiency (E55.9) Active confirmed Plan Of Treatment Pending Test Test Name Order Date 25OH VITAMIN D 05/14/2022 LIPID PANEL 05/14/2022 LIPID PANEL, STANDARD 03/20/2022 COMPREHENSIVE METABOLIC PANEL 03/20/2022 CBC (INCLUDES DIFF/PLT) 03/20/2022 URINALYSIS, COMPLETE 03/20/2022 HEMOGLOBIN A1c 03/20/2022 TSH 03/20/2022 VITAMIN D,25-OH,TOTAL,IA 03/20/2022 Insurance Providers Payer Name Payer Address Payer Phone Subscriber Number Group Number Insured Name Patient Relationship to Insured Coverage Start Date Coverage End Date [employer] and [facility] [address] [place] [address] [phone] [id number] GARRISON BERGER Self - patient is the insured Medical (General) History Hospitalization History Reason Date(Month/Year) back injury 04/13/2020
== END 2025-07-12 15:03 | disposition home or self-care (01) ==
LOC: HO.US 15:02
PROVIDERS: Visit Provider Urology
DX: N20.0 Calculus of kidney (principal)
CPT/HCPCS: 76775

== ENCOUNTER → 2025-07-12 15:05 | Outpatient (BNV) | payer OTHER, SELFPAY | PROVIDERS: Visit Provider Radiology Diagnostic Radiology | DX: Z87.442 Personal history of urinary calculi (principal) | CPT/HCPCS: 76775 ==

== ENCOUNTER 2025-09-10 17:37 | Emergency (ER) | payer OTHER, SELFPAY ==
[2025-09-10 18:02] VITALS: BP 134/63; PULSE 58; RESP 20; TEMP 37; O2SAT 98; BMI 28.9
[2025-09-10] MEDS: Lidocaine HCl 1 % MPF 2 ML VIAL INFILTRATI ×2 (18:26)
[2025-09-10] MEDS: Diphth,Pertus(ACell),Tet Adult 0.5 ML SYRINGE IM (18:30)
--- NOTE | 2025-09-10 18:41 | ED_ITS ---
HPI - Wound/Laceration General Chief Complaint: Wound/Laceration Stated Complaint: L index finger lac Time Seen by Provider: 09/10/25 18:08 Source: patient Mode of arrival: ambulatory Limitations: no limitations History of Present Illness ED Provider: Cecily Hernandez APRN HPI narrative: 45-year-old male healthy right-hand dominant here with complaints of lacerations to the left index finger from a tile cutter at home. Patient's tetanus is not up-to-date. He reports some pain at the site and bleeding. No associated numbness or tingling. Related Data Home Medications ?Medication ?Instructions ?Recorded ?Confirmed omeprazole 20 mg tablet,delayed 20 mg PO DAILY PRN Gas tric Reflux 06/01/24 07/21/24 release Previous Rx's ?Medication ?Instructions ?Recorded naproxen 500 mg tablet 500 mg PO BID #14 tabs 05/15 naproxen 500 mg tablet 500 mg PO BID PRN pain 7 day s #14 06/03/24 tabs oxycodone 5 mg tablet 5 mg PO Q8H PRN pain 3 days #8 tabs 06/03/24 tamsulosin 0.4 mg capsule 0.4 mg PO BEDTIME 14 days #1 4 caps 06/03/24 Allergies Allergy/AdvReac Type Severity Reaction Status Date / Time No Known Allergies Allergy Verified 09/10/25 18:02 Review of Systems Review of Systems: Yes all other systems are reviewed and are negative Constitutional: Constitutional: Reports no additional constitutional c omplaints, Denies body ache(s), Denies chills, Denies fever(s), Denies headache(s) and Denies weakness Eyes: Eyes: Reports no additional eye complaints and Denies change in vision ENT: Reports system reviewed and no additional complaints, except as documented, Denies dizziness, Denies headache(s), Denies nasal congestion, Denies nasal discharge and Denies neck pain Cardiovascular: Cardiovascular: Reports no additional cardiovascular complaints, Denies chest pain, Denies leg edema and Denies dyspnea Respiratory: Respiratory: Reports no additional respiratory complaints, Denies cough and Denies dyspnea Gastrointestinal: Gastrointestinal: Reports no additional gastrointestinal complaints, Denies abdominal pain, Denies diarrhea, Denies nausea and Denies vomiting Genitourinary: Genitourinary: Denies urinary incontinence Musculoskeletal: Musculoskeletal: Reports no additional musculoskeletal complaints, Denies back pain, Denies arthralgias, Denies joint swelling, Denies neck pain, Denies numbness and Denies tingling Integumentary/Breasts: Skin/Breast: Reports system reviewed and no additional complaints, except as docu, Denies rash and Reports wounds Neurologic: Reports system reviewed and no additional complaints, except as documented, Denies Abnormal speech present, Denies dizziness, Denies headache(s), Denies numbness, Denies tingling and Denies weakness PMFSH Past Medical History Attestation statement: The following information was validated with the patient. Source: old records reviewed and nursing notes reviewed Medical History Renal calculi Mild heartburn Surgical History History of back surgery Social History Social History Household Members: Family Housing: House Are you a primary before and after school daycare worker to a significant other at home: No Do you presently have visiting nurse or other home services: No Patient Tobacco Use Status: Never used Tobacco Advance Directives: No Advance Directives Information Provided: No Physical Exam Vital Signs: Vital Signs: Last Vital Signs Temp 98.6 F 09/10/25 18:02 Pulse 58 09/10/25 18:02 Resp 20 09/10/25 18:02 BP 134/63 09/10/25 18:02 Pulse Ox 98 09/10/25 18:02 O2 Del Method Room Air 09/10/25 18:02 BMI result Body Mass Index 28.9 Const: General: cooperative, healthy appearing, comfortable and no acute distress Orientation/consciousness: patient oriented x3 Limitations: no limitations HEENT: Head: Yes normal to inspection Ears: hearing grossly normal bilaterally General nose exam: Normal external nose present Face and sinus: Yes normal facial exam Mouth: Normal oral and palatal mucosa present Throat: Yes posterior oropharynx normal Eyes: General: appearance normal, both eyes and all related structures Pupils: Equal, round and reactive pupils present Neck: Neck: Yes normal visual inspection Chest: Chest palpation & inspection: normal inspection of the chest Resp: Effort & Inspection: normal respiratory effort Auscultation: clear to auscultation bilaterally Cardio: Rate: regular rate Rhythm: regular rhythm Peripheral pulses: Peripheral pulses 2+ throughout GI: Inspection: Yes normal to inspection Palpation (GI): Soft to palpation and nontender Auscultation: normal bowel sounds Back/Spine/Pelvis: Thoracic/Lumbar Spine: thoracic and lumbar spine normal to inspection Skin: General skin exam: no rashes or lesions noted Neuro: General: patient oriented x3, no focal motor deficits and normal sensation to monofilament Cranial nerves: Yes Equal, round and reactive pupils present Cognition (Neuro): normal cognition Speech: No Abnormal speech present Gait exam (Neuro): Normal gait present Motor exam (neuro): 5/5 motor strength present throughout Extrem: Other: Over the volar aspect of the distal left 2nd digit there is a 2cm laceration. There is some mild bleeding noted. There full active and passive range of motion. Sensation is intact. Medications Administered Discontinued Medications Generic Name Dose Route Start Last Admin Trade Name Freq PRN Reason Stop Dose Admin Diphtheria/Tetanus/Acell Pertussis 0.5 ml 09/10/25 18:05 09/10/25 18:30 Diphth,Pertus(Acell),Tet Adult 0.5 Ml Syringe IM 09/10/25 18:06 0.5 ml .ONCE ONE Administration Lidocaine HCl 2 ml 09/10/25 18:08 09/10/25 18:26 Lidocaine Hcl 1 % Mpf 2 Ml Vial INFILTRATI 09/10/25 18:09 2 ml ONCE ONE Administration Lidocaine HCl 2 ml 09/10/25 18:08 09/10/25 18:26 Lidocaine Hcl 1 % Mpf 2 Ml Vial INFILTRATI 09/10/25 18:09 2 ml ONCE ONE Administration Medical Decision Making Medical Decision Making MDM Narrative: 45-year-old male healthy right-hand dominant here with complaints of lacerations to the left index finger from a tile cutter at home. Patient's tetanus is not up-to-date. He reports some pain at the site and bleeding. No associated numbness or tingling. Over the volar aspect of the distal left 2nd digit there is a 2cm laceration. There is some mild bleeding noted. There full active and passive range of motion. Sensation is intact. See procedure note Tetanus was updated Differential Diagnosis Differential Diagnoses: The differential diagnosis associated with the presentation includes Laceration Low suspicion for retained foreign body, tendon injury, vascular injury, bony abnormality Admission/Observation Consideration of admission/observation: Escalation of care including admission/observation considered Procedures Laceration Laceration 1: Site: hand (2nd finger) Side (If applicable): left Size (cm): 2 Description: linear Depth: simple, single layer Local Anesthetic: lidocaine 1% and other anesthetic (used digital block) Amount of anesthesia used (mL): 4 Pre-repair: wound explored and irrigated extensively Skin layer closed with: vicryl Size (cm): 5-0 Number of sutures: 3 Discharge Plan Discharge Clinical Impression: Laceration Patient Disposition: Home, Self-Care Instructions: Finger Laceration (ED) Additional Instructions: Sutures out in 7-10 days Prescriptions: No Action naproxen 500 mg tablet 500 mg PO BID Qty: 14 0RF omeprazole 20 mg Tablet,Delayed Release (Dr/Ec) 20 mg PO DAILY PRN (Reason: Gastric Reflux) tamsulosin 0.4 mg capsule 0.4 mg PO BEDTIME 14 Days Qty: 14 0RF naproxen 500 mg tablet 500 mg PO BID PRN (Reason: pain) 7 Days Qty: 14 0RF oxycodone 5 mg tablet 5 mg PO Q8H PRN (Reason: pain) 3 Days Qty: 8 0RF Rx Instructions: Partial Fill upon patient request. Referrals: Physician,Unknown J [Physician, Medical] Print Language: Citizen [place]
--- OUTSIDE RECORDS SUMMARY | 2025-09-10 18:50 | XMS_ITS | Continuity of Care Document ---
Author Organization [place] - [facility], [facility] Address [address] [place] [address] Care Team Providers Care Accounting Associate Name Role Phone [facility] Care Provider Assessment Encounter Date Assessment Date Assessment LastModified by Organization Details LastModified Time 09/06/2025 09/06/2025 44-year-old male presents for review of allergy testing and follow-up of sinusitis. Allergy testing with mild allergy to lambs quarters weed, Yeimi mold, and penicillium mold. Immunotherapy not recommended at this time. Examination today demonstrates high septal deviation to the right and septal spur to the left. No purulence. Given persistent symptoms, recommended CT sinus for further evaluation. We will arrange consult with a surgeon to review imaging and to discuss candidacy for septoplasty. Patient agrees with plan and all questions were answered. domo Not available 09/06/2025 14:34:03 Plan of Treatment Reminders Order Date Submit Date Provider Last Modified By Organization Details Last Modified Time Details Appointments CT Scan 2024 03:00P M [facility] Not available Not available Not available Establish ed 15 2024 03:45P M Rocky Vaz, DO Not available Not available Not available Lab None recorded. Referral None recorded. Procedures None recorded. Surgeries None recorded. Imaging CT, sinuses, w/o contrast - Xoran to be scheduled ; follow up with MD 2024 025 [email or web address] Not available 09/10/2025 14:45:10 Medication Orders None recorded. Patient TargetsNo targets recorded. Patient InstructionsNo instructions recorded. Reason for Referral None Reported. Problems Name Problem SNOMED Code Status Onset Date Resolution Date Notes Provider Name and Address Organization Details Recorded Time Chronic rhinitis 23059245 Active 2021 Chronic rhinitis ; Note: Date Diagnose d: 2 2:46 PM (J31.0) Not Available [facility] 4 03:34:46 Nasal congestion 13085845 Active 2024 LISA CHAO PA-C [address] [facility] [address],[place] [address], [place], [address] , [facility] - [facility] [place] 5 15:51:50 Acute sinusitis 91371821 Active 2024 LISA CHAO PA-C [address] [place], [place] [address] [address],[place] [address], [facility] [place], [address] , [facility] - [facility] 5 15:00:50 Perennial allergic rhinitis 358906218 Active 2024 Misti Colunga [address] [place], [place] [address] [place] [address], [facility] [place], [address] , [facility] - [facility] 5 13:12:32 Deviated nasal septum 664807541 Active 2024 LISA CHAO PA-C [address] [place], [place] [address] [address],[place] [address], [place], [address] , [facility] - [facility] [place] 14:30:34 Problem Notes None recorded. Procedures Surgical History Date Name Laterality Status Provider Name and Address Organization Details Recorded Time 5 Allergy Testing-Full completed Misti Colunga [facility] [address],[place] [address], [place], [address], [facility] - [facility] 06/22/2025 14:10:24 5 JMSNasal/Sinus Endoscopy completed LISA CHAO PA-C [address],[place] [address], [place], [address], [facility] - [facility] 05/13/2025 16:24:57 Imaging Results None recorded. Procedure Notes None recorded. Medical Equipment None Reported. Allergies No known drug allergies Medications Name Sig Start Date Stop Date Status Note LastModified by Organization Details LastModified Time doxycycli ne hyclate 100 mg tablet Take 1 tablet twice a day by oral route for 14 days. 06/26 completed Not Available Not Available Not Available ipratropi um bromide 21 mcg (0.03 %) nasal spray Inhale 2 spray three times a day as directed 2021 active Medicati on ID: [id number] D uration Value: 30 Brand Name: ipratrop ium bromide Send Method: E-Prescr ibed Sub s Allowed: subs OK Medic ationGen ericName : ipratrop ium bromide Not Available Not Available Not Available Vitals Date Recorded Body height Provider Name an d Address Organization Details Last Updated DateTime 09/06/2025 180.34 cm GEMMA SIERRA [place] - [facility] 09/06/2025 14:14:07 Social History Question Answer Notes LastModified by Organizat ion Details LastModified Time Tobacco Smoking Status Former Smoker Ely alvares [place] - [facility] 05/13/2025 14:32:17 When Did You Quit Smoking? 16+yearssinc elastcigaret te Information not available 05/13/2025 Do You Have Any Pets? Yes Information not available 05/13/2025 At What Age Did You Start Smoking Tobacco? 17 Information not available 05/13/2025 Are You Passively Exposed To Smoke? No Information not available 05/13/2025 Are There Any Smokers In Your House? No Information not available 05/13/2025 How Much Tobacco Do You Smoke? 0.5 PPD Information not available 09/06/2025 How Many Years Have You Smoked Tobacco? 7 Information not available 09/06/2025 Sex: Unknown Functional Status Question Answer Note LastModified by Organizat ion Details LastModified Time Do you use any illicit or recreational drugs? No Information not available 05/13/2025 Do you or have you ever used any other forms of tobacco or nicotine? No Information not available 05/13/2025 Mental Status None recorded. Family History Nothing Reported. Medical History Condition Response Allergies/Hayfever N Heart Problems N Anxiety N Tonsil Infections N Emphysema N Migraines N Thyroid Problems N COPD N Depression N Developmental Delay N Glaucoma N Nasal or Sinus Problems Y Anemia N Immune System Disorder N Anesthesia Complications N Heart Attack ([place]) N Other Skin Condition N Diabetes N Rhinitis N Bleeding Disorder N Food Allergy N Hearing Loss N Arthritis N Hyperlipidemia N Cancer N Stroke N Dementia N Asthma N Sleep Disorder N High Cholesterol N GERD/Reflux N Liver Disease N Headaches N Fibromyalgia N Hypertension N Speech Delay N Kidney Disease Y Past Encounters Encounter ID Performer Location Encounter Start Date Encounter Closed Date Diagnosis/Indication Diagnosis SNOMED-CT Code Diagnosis ICD10 Code Diagnosis IMO Codes Diagnosis Note [id number] LISA CHAO PA-C [facility] [address] [address] 09/06/2025 14:10:51 09/06/2025 14:30:32 Perennial allergic rhinitis 109283370 J30.89 537429 Acute sinusitis 08418374 J01.80 690669653 Deviated nasal septum 12 8581243 J34.2 993556 Nasal congestion 1769918 0 R09.81 38708 Health Concerns Section Related Observation LastModified by Organization Detai ls LastModified Time None Recorded Concern Status LastModified by Organization Details LastModified Time None Recorded Payers Encounter Date Sequence Insurance Name Policy Number Policy Kruger Covered Member ID Kruger Member ID Guarantor Name 09/06/2025 1 [facility] TYPE I (HMO) [id number] Zachary Bezrutchenko [id number] Zachary Bezrutchenko Notes Date Note Type Note Provider Name and Address Organization Details Recorded Time 09/06/2025 text/html ROS as noted in the HPI 44-year-old male presents for follow-up of nasal congestion. Previously nasal endoscopy with septal deviation and mucoid rhinorrhea. Culture was positive for Staph aureus susceptible to doxycycline. He completed 14 days of doxycycline. Also used saline products. Patient did not use Flonase as he has a history of epistaxis in the past with nasal sprays. He also underwent allergy testing. History of nasal trauma from boxing in the past, but no known nasal fractures or prior nasal surgeries. He continues to have chronic nasal congestion. Denies facial pain or rhinitis. LISA CHAO PA-C [address] [place] [address],[facility] [address], [place], [address], [facility] - [facility] 09/06/2025 14:35:18
--- OUTSIDE RECORDS SUMMARY | 2025-09-10 18:50 | XMS_ITS | Data Portability ---
Author Organization [place] - [facility], Allergy Address [address] [address] Care Team Providers Care Watch Dial Maker Name Role Phone [facility] Care Provider Assessment Encounter Date Assessment Date Assessment LastModified by Organization Details LastModified Time 05/13/2025 05/13/2025 44 year old male presents for reevaluation of chronic nasal congestion. On anterior rhinoscopy, nares appear patent with no obvious masses, septal deviation, or nasal polyps. Direct rigid endoscopy demonstrated a mild septal spur touching the middle turbinate on the left and mucoid rhinorrhea bilaterally, right greater than left. Culture was obtained from the right nasal cavity to rule out underlying infection. Allergy testing was also recommended and he will follow up to review the results. May consider CT imaging of the sinuses at the next visit depending on the results. Kaylee Kaur PA-C assisted with the visit and documentation. [email or web address] Not available 05/13/2025 16:26:10 09/06/2025 09/06/2025 44-year-old male presents for review [...] with plan and all questions were answered. [email or web address] Not available 09/06/2025 14:34:03 Plan of Treatment Reminders Order Date Submit Date Provider Last Modified By Organization Details Last Modified Time Details Appointments CT Scan 2024 03:00P M [facility] Not available Not available Not available Establish ed 15 2024 03:45P M Rocky Vaz, DO Not available Not available Not available Lab culture, abscess 2024 025 DALTON [facility] (Centralized Electronic Ordering - All Locations), Patient Can Go To The Location Of Their Choice, [id number] 06/11/2025 09:16:58 fungus, culture, unspecifi ed specimen 2024 025 DALTON [facility] (Centralized Electronic Ordering - All Locations), Patient Can Go To The Location Of Their Choice, [id number] 06/11/2025 09:16:59 Referral None recorded. Procedures allergy testing, skin prick (PROC) 2024 025 [email or web address] Not available 05/25/2025 08:06:50 intraderm al allergy skin testing (PROC) 2024 025 [email or web address] Not available 05/25/2025 08:06:50 pulmonary function test procedure (PROC) 2024 025 [email or web address] Not available 05/25/2025 08:06:50 pulse oximetry (PROC) 2024 025 [email or web address] Not available 05/25/2025 08:06:50 Surgeries None recorded. Imaging CT, sinuses, w/o contrast - Xoran to be scheduled ; follow up with 2024 025 [email or web address] Not available 09/10/2025 14:45:10 Medication Orders None recorded. Patient TargetsNo targets recorded. Patient Instructions Encounter Date Encounter Id Patient Instructions Last Modified By Organization Details Last Modified Time 06/22/2025 [id number] spirometry testing* [email or web address] Not available 06/22/2025 14:57:46 Reason for Referral None Reported. Results Created Date Observation Date Name Description Value Unit Range Abnormal Flag Note LastModifiedBy Organization Detail LastModifiedTime 05/13/2005/16/2025 ANAER OBIC AND AEROB IC CULTU RE aerobic culture Final report abnormal Not Available [facility] ([facility]) [address] [facility], [place], [address], 06/11/2025 09:16:58 05/13/2005/16/2025 ANAER OBIC AND AEROB IC CULTU RE result 1 Staphy lococc us aureus abnormal Based on susce ptibi lity to oxaci llin this isola te would be susce ptibl e to: *Peni cilli nase- stabl e penic illin s, such as: Cloxa cilli n, Diclo xacil payton, Nafci llin *Beta -lact am combi natio n agent s, such as: Amoxi cilli n-cla vulan ic acid, Ampic illin -sulb actam , Piper acill in-ta zobac carl *Oral cephe ms, such as: Cefac thiago, Cefdi esha, Cefpo doxim e, Cefpr ozil, Cefur oxime , Cepha lexin , Lorac arbef *Pare ntera l cephe ms, such as: Cefaz felton, Cefep blanco, Cefot axime , Cefot migel, Cefta rolin e, Cefti zoxim e, Ceftr iaxon e, Cefur oxime *Carb apene ms, such as: Dorip enem, Ertap enem, Imipe nem, Merop enem Moder ate growt h Not Available [facility] ([facility]) [address] [facility], [place], [address], 06/11/2025 09:16:58 05/13/2005/16/2025 ANAER OBIC AND AEROB IC CULTU RE antimicrobia l susceptibili ty Commen t S = Susce ptibl e; I = Inter media te; R = Resis tant P = Posit keara; N = Negat keara MICS are expre ssed in micro grams per mL Antib iotic RSLT# 1 RSLT# 2 RSLT# 3 RSLT# 4 Cipro floxa reena S Clind amyci n S Eryth romyc in S Genta micin S Levof loxac in S Linez olid S Moxif loxac in S Oxaci llin S Penic illin R Rifam pin S Tetra cycli ne S Trime thopr im/Nguyễn lfa S Vanco mycin S Not Available [facility] ([facility]) [address] [facility], [place], [address], 06/11/2025 09:16:58 05/13/20 25 05/17/2025 ANAER OBIC AND AEROB IC CULTU RE anaerobic culture Final report Not Available [facility] ([facility]) [address] [facility], [place], [address], 06/11/2025 09:16:58 05/13/2005/17/2025 ANAER OBIC AND AEROB IC CULTU RE result 1 COMMEN T No anaer obic growt h in 72 hours . Not Available [facility] ([facility]) [address] [facility], [place], [address], 06/11/2025 09:16:58 05/13/2006/11/2025 FUNGU S (MYCO LOGY) CULTU RE fungus (mycology) culture Final report Not Available [facility] ([facility]) [address] [facility], [place], [address], 06/11/2025 09:16:59 05/13/2006/11/2025 FUNGU S (MYCO LOGY) CULTU RE result 1 COMMEN T No yeast or mold isola betsy after 4 weeks . Not Available [facility] ([facility]) [address] [facility], [place], [address], 06/11/2025 09:16:59 06/22/20 germain metry testi ng* No observ ation record ed. [email or web address] Not Available 2024 09:57:56 Result Notes None recorded. Problems Name Problem SNOMED Code Status Onset Date Resolution Date Notes Provider Name and Address Organization Details Recorded Time Chronic rhinitis 17069643 Active 2021 Chronic rhinitis ; Note: Date Diagnose d: 2 2:46 PM (J31.0) Not Available [facility] 4 03:34:46 Nasal congestion 09433538 Active 2024 LISA CHAO PA-C [address] [facility] [place] [address], [facility] [place], [address] , [facility] - [facility] 5 15:51:50 Acute sinusitis 97939747 Active 2024 LISA CHAO PA-C [address] [facility] [place] [address], [facility] [place], [address] , [facility] - [facility] 5 15:00:50 Perennial allergic rhinitis 666763147 Active 2024 Misti Colunga [address] [facility],[place] [address], [facility] [place], [address] , [facility] - [facility] 13:12:32 Deviated nasal septum 814370862 Active 2024 LISA CHAO PA-C [address] [facility],[place] [address], [place], [address] , [facility] 14:30:34 Problem Notes None recorded. Procedures Surgical History Date Name Laterality Status Provider Name and Address Organization Details Recorded Time Allergy Testing-Full completed Misti Colunga [address] [place] [address],[place] [address], [place], [address], [facility] 06/22/2025 14:10:24 JMSNasal/Sinus Endoscopy completed LISA CHAO PA-C [address] [facility],[place] [address], [place], [address], [facility] 05/13/2025 16:24:57 Imaging Results None recorded. Procedure [...] as directed 2021 active Medicati on ID: [id number] D uration Value: 30 Brand Name: ipratrop ium bromide Send Method: E-Prescr ibed Sub s Allowed: subs OK Medic ationGen ericName : ipratrop ium bromide Not Available Not Available Not Available Vitals Date Recorded Body height Body mass index (BMI) Body weight Provider Name and Address Organization Details Last Updated DateTime 05/13/2025 180.34 cm 29.3 kg/m2 18633.4 g Ely Savage [place] - [facility] 05/13/2025 14:32:07 Date Recorded Body height Body mass index (BMI) Body weight Oxygen saturation Oxygen saturation in Arterial blood by Pulse oximetry Heart rate Systolic And Diastolic Provider Name and Address Organization Details Last Updated DateTime 180.34 cm 29.3 kg/m2 01124.4 g 98 % 98 % 77 /min 126/77 mm[Hg] [address], [address] [place] - [facility] 13:10:40 Date Recorded Body height Provider Name an d Address Organization Details Last Updated DateTime 09/06/2025 180.34 cm GEMMA SIERRA [place] - [facility] 09/06/2025 14:14:07 Social History Question Answer Notes LastModified by Organizat ion Details LastModified Time Tobacco Smoking Status Former Smoker Ely Savage [place], [place] - [facility] 05/13/2025 14:32:17 When Did You Quit [...] Disorder N Anesthesia Complications N Heart Attack (RI) N Other Skin Condition N Diabetes N [...] ICD10 Code Diagnosis IMO Codes Diagnosis Note [id number] LISA CHAO PA-C [facility] [address] [address] 05/13/2025 14:22:33 05/13/2025 15:03:03 Nasal congestion 68597166 R09.81 [id number] PATRIZIA HOLLIDAY RN Allergy [address] [place] [address] [address] 06/22/2025 12:54:17 06/22/2025 14:12:05 Nasal congestion 75347084 R09.81 84599 Perennial allergic rhinitis 354180449 J30.89 173420 [id number] LISA CHAO PA-C [facility] [address] [address] 09/06/2025 14:10:51 09/06/2025 14:30:32 Perennial allergic rhinitis 482126706 J30.89 508889 Acute sinusitis 54412406 J01.80 025654721 Deviated nasal septum 12 0039587 J34.2 231841 Nasal congestion 4522710 0 R09.81 23741 Health Concerns Section Related Observation LastModified by Organization Detai ls LastModified Time None Recorded Concern Status LastModified by Organization Details LastModified Time None Recorded Advance Directives Directive None Recorded Payers Insurance Date Sequence Insurance Name Policy Number Policy Kruger Covered Member ID Kruger Member ID Guarantor Name 09/06/2025 1 [facility] [employer] - DIRECT CONNECTORCARE TYPE I (HMO) [id number] Zachary Bezrutchen ko [id number] Zachary Bezrutchenko 05/13/2025 1 [facility] PLAN [id number] Zachary Bezrutchen ko [id number] Zachary Bezrutchenko 05/13/2025 1 [place] [facility] Zachary Bezrutchen ko [id number] Zachary Bezrutchenko Notes Date Note Type Note Provider Name and Address Organization Details Recorded Time 05/13/2025 text/html ROS as noted in the HPI 44 year old male presents for reevaluation of chronic nasal congestion. Patient was previously seen by Dr. Riggins in 2021 for the same issue. He continues to have difficulty breathing through his nose, particularly on the side he lies down on, but is slightly worse on the left in general. Patient was recommend a trial of Atrovent which he did not tolerate or benefit from. Symptoms have been ongoing for almost 10 years. He admits to using Afrin regularly in the past, but has since weaned off and only uses sparingly when sick. Denies altered sense of smell and taste, history of sinus infections, and nasal surgery. He did have a history of nasal trauma from boxing in the past, but no known nasal fractures. No known environmental allergies, but never had formal allergy testing done. Currently owns a cat which he got 8 years ago. Not currently taking any nasal sprays or antihistamines. ROCKY MARCELINO MD [address] [place] [address], [address], [facility] - [facility] 05/13/2025 17:25:22 09/06/2025 text/html ROS as noted in the [...] facial pain or rhinitis. LISA CHAO PA-C [address] [place] [address], [place], [address], [facility] - [facility] 09/06/2025 14:35:18
[2025-09-10 19:00] VITALS: BP 134/63; PULSE 58; RESP 20; TEMP 37; O2SAT 98
== END 2025-09-10 19:01 | disposition home or self-care (01) ==
PROVIDERS: Emergency Provider Emergency Medicine Emergency Medical Services; PCP Internal Medicine
DX: S61.211A Laceration without foreign body of left index finger without damage to nail, initial encounter (principal); W45.8XXA Other foreign body or object entering through skin, initial encounter; Y93.89 Activity, other specified; Y92.89 Other specified places as the place of occurrence of the external cause; Y99.9 Unspecified external cause status; Z23 Encounter for immunization
CPT/HCPCS: 12001; 90471; 90715; 99282; 99284; J2003

== ENCOUNTER 2025-09-24 09:07 | Outpatient (AMB) | payer OTHER, SELFPAY ==
--- NOTE | 2025-09-24 09:08 | MHC.OFFVIS ---
Intake Visit Reasons: 1y/US Intake Note: Patient is Present for Follow Up us results Urology Medication: None- No longer on tamsulosin Antibiotic Allergies: None Blood Thinners: None Tire Finisher Required: No Accompanied by: Self / Same As Patient Allergies No Known Allergies Allergy (Verified 09/24/25 09:09) HPI Comments Details: Zachary is a pleasant male. He is a patient of Dr. Bravo. He has seen for the following urologic conditions - nephrolithiasis Telemedicine Evaluation 15 min Consultation GOODWIN Jin Video Follow-up ultrasound no stone seen Twelve month follow-up KUB Nephrolithiasis Recently seen at emergency room Presentation with dark urine Found to have 6 mm renal stone right side Intervention - 05/11 right ESWL Imaging - 07/11 renal ultrasound no stones - 07/12 renal ultrasound no stone seen [facility] Medical History Renal calculi Mild heartburn Surgical History History of back surgery Social History Household Members: Family Housing: House Are you a primary healthcare economics consultant to a significant other at home: No Do you presently have visiting nurse or other home services: No 75 years or older and lives alone: No Patient Tobacco Use Status: Never used Tobacco Review of Systems Const Denies chills and Denies fever(s) Card Reports no additional complaints and Denies syncope Resp Denies cough GI Denies abdominal pain and Denies heartburn Reports as per HPI and Denies change in libido Neuro Denies syncope Psych Denies change in libido Endo Denies change in libido Physical Exam Const General: cooperative, healthy appearing, comfortable and no acute distress Orientation/consciousness: patient oriented x3 HEENT Face and sinus: Yes normal facial exam Mouth: moist mucous membranes Neck Neck: Yes normal visual inspection, Yes full ROM and Yes trachea midline Chest Chest palpation & inspection: normal inspection of the chest Resp Effort & Inspection: normal respiratory effort, able to speak in complete sentences and no respiratory distress GI Inspection: Yes normal to inspection Back/Spine/Pelvis Cervical Spine: normal cervical lordosis Thoracic/Lumbar Spine: thoracic and lumbar spine normal to inspection Skin General skin exam: no rashes or lesions noted Neuro General: patient oriented x3, gait normal, tone normal and moves all extremities Extrem General: Yes normal to inspection and Yes capillary refill normal Telehealth Telehealth Telehealth Platform: GOODWIN Location of provider rendering services: practice address Location of patient: address on file Patient Identification confirmed using: Name, : Yes Telehealth method: video Patient verbally consented to treatment: Yes Patient verbally consented to billing insurance company: Yes Patient informed of any privacy concerns related to visit: Yes Minutes spent on Phone/Video with Pt.: 15 Assessment & Plan Assessment & Plan (1) Kidney calculi: Code(s): N20.0 - Calculus of kidney Category: Medical Plan Twelve month follow-up KUB office Orders: Orders XR KUB 12 Months N20.0 - Calculus of kidney Patient Instructions: This note is constructed using voice recognition software. While every effort has been made to ensure accuracy memory care program director errors may have been included. Imaging studies, laboratory and physical exam results were discussed and reviewed in detail. No major barriers to patient understanding were identified. An opportunity to ask questions regarding the treatment plan was provided. All questions were answered. The patient expressed understanding and agreement with the above treatment plan. The patient is aware they should contact our office by phone for worsening of their current condition or the appearance of new urologic symptoms. Compliance is encouraged with any medications and followup testing that is ordered. It is a privilege to participate in the urologic care of your patient. If you have any questions or concerns regarding treatment for the above conditions, or other urologic issues, please do not hesitate to contact me. The office telephone contact is [phone]. Sincerely, Dr Fabrizio Rajput MD, [facility] - Urology Compassionate Specialist Care for the Genitourinary System Coding Level of Care Code Tele Est Pt Level 3 (51099) Diagnoses Kidney calculi N20.0
--- OUTSIDE RECORDS SUMMARY | 2025-09-24 10:11 | XMS_ITS | Clinical Summary ---
Author Organization [facility] [address] [place] [address] [place] [address] Phone Care Team Providers Care Ground Crewman Aircraft Support Name Role Phone Casimiro Bravo MD Primary Care Provider Allergies No known active allergies Medications doxycycline hyclate (VIBRA-TABS) 100 mg tablet Take 1 tablet twice a day by oral route for 14 days. 06/11/2025 Active Active Problems Problem Noted Date Diagnosed Date Pure hypercholesterolemia 02/26/2025 Former smoker 02/24/2025 Kidney stones 02/24/2025 Obesity (BMI 30-39.9) 02/24/2025 Alcohol use 02/24/2025 Surgical History Surgery Date Site/Laterality Comments BACK [...] care for your loved ones. For example, early childhood special educator or elderly care for an older adult? [...] Date Recorded What is your living situation? Unrecognized valu e 02/22/2025 Sex and Gender Information Value Date [...] 1:30 PM EST Office Visit Orthopedic Surgery [facility] [address] [facility] [address] [place] [address] Chuck Silvestre MD [address] [place] [address] Health Maintenance Due Date Last Done Comments DTaP,Tdap,and Td Vaccines (1 - Tdap) 1999 Hepatitis B Vaccines (1 of 3 - 19+ 3-dose series) 1999 HPV Vaccines (1 - 3-dose SCD M series) 2007 Influenza Vaccine (#1) 2025 Social Influencers of Health Screening 02/22/2026 02/22/2025 Cholesterol Screening (Lipid Panel) 02/25/2030 02/25/2025 RSV Immunization Adult Patie nts (1 - 1-dose 75+ series) 2055 Depression Screening Completed 02/22/2025 HIV Screening Completed [...] LAB CHEMISTRY METHOD 02/25/2025 5:39 PM EDT [facility] Blood Venous blood specimen / Unknown Venipuncture / Unknown 02/25/2025 9:34 AM EDT 02/25/2025 9:34 AM EDT us Subha Lakhwinder WYLIE LAB BLOOD ORDERABLES Final Resul t [facility] [address] [place] [address], [place] [phone] * HIV 1,2 antibody, p24 antigen with reflex to differentiation (02/25/2025 9:34 AM EDT) [facility] HIV Combo AB/AG Negative Negative LAB CHEMISTRY METHOD 02/25/2025 5:40 PM EDT [facility] Blood Venous blood specimen / Unknown Venipuncture / Unknown 02/25/2025 9:34 AM EDT 02/25/2025 9:34 AM EDT Narrative [facility] - 02/25/2025 5:40 PM EDT This assay is a 4th generation assay allowing for earlier detection of HIV infection by detecting the presence of the HIV-1 p24 antigen as well as the traditional antibodies to HIV type 1 (including group O) and type 2. Use of a 4th generation assay is the current CDC recommendation for HIV screening. us Subha Lakhwinder PA LAB BLOOD ORDERABLES Final Resul t [facility] [address] [place] [address], [place] [phone] * (ABNORMAL) Lipid panel with reflex to direct LDL (02/25/2025 9:34 AM EDT) [facility] Cholesterol 220(H) 0 - 200 mg/dL LAB CHEMISTRY METHOD 02/25/2025 1:05 PM EDT [facility] Triglycerides 63 0 - 150 mg/dL LAB CHEMISTRY METHOD 02/25/2025 1:05 PM EDT [facility] HDL 58 >=40 mg/dL LAB CHEMISTRY METHOD 02/25/2025 1:05 PM EDT [facility] LDL Calculated 149(H) 0 - 100 mg/dL LAB CHEMISTRY METHOD 02/25/2025 1:05 PM EDT [facility] VLDL Cholesterol [place] 12.6 mg/dL LAB CHEMISTRY METHOD 02/25/2025 1:05 PM EDT [facility] Non HDL Chol. (LDL+VLDL) 162(H) <145 mg/dL LAB CHEMISTRY METHOD 02/25/2025 1:05 PM EDT [facility] Chol/HDL Ratio 3.8 0.0 - 4.4 LAB CHEMISTRY METHOD 02/25/2025 1:05 PM EDT [facility] Blood Venous blood specimen / Unknown Venipuncture / Unknown 02/25/2025 9:34 AM EDT 02/25/2025 9:34 AM EDT us Subha Lakhwinder WYLIE LAB BLOOD ORDERABLES Final Resul t [facility] [address] [place] [address], from Last 3 Months or Most Recently Relevant to Health Maintenance Insurance [facility] PUBLIC PLANS Care Teams Ground Crewman Aircraft Support Relationship Specialty Start Date End Date Casimiro Bravo MD [address] [place] [address] PCP - General 05/15/24
--- OUTSIDE RECORDS SUMMARY | 2025-09-24 10:12 | XMS_ITS | Patient Health Record ---
Author Organization [facility] Address [address] [place] [address] Care Team Providers Care Build Engineer Name Role Phone JEFF GAMBOA Unavailable [phone] Allergies No Known Allergies Reason For Referral [...] Status W/U Status Risk Notes Problem Obesity (706561253) Obesity, uns pecified (E66.9) Active confirmed Problem Hyperlipidemia (01534909) Hyperlipidemia, unspecified (E78.5) Active confirmed Problem Pure hypercholesterolemia (922039052) Pure hypercholesterolemia (E78.00) Active confirmed Problem Vitamin D deficiency (12204317) Vitamin D deficiency (E55.9) Active confirmed Plan [...] Date Coverage End Date [employer] and [facility] [address] [place] [address] [phone] [id number] GARRISON BERGER Self - patient is the insured Medical (General) History Hospitalization History Reason Date(Month/Year) back injury 04/13/2020
== END 2025-09-24 09:38 | disposition home or self-care (01) ==
LOC: HO.HUSH 09:07
PROVIDERS: PCP Internal Medicine; Visit Provider Urology
DX: N20.0 Calculus of kidney (principal)
CPT/HCPCS: 98004